=== PATIENT | female | born 1975 | race Caucasian/White ===

== ENCOUNTER 2016-10-02 09:19 | Emergency (ER) | payer MEDICAID, OTHER ==
[~2016-10-02] VITALS: Ht 154.9 cm; Wt 55.0 kg
[2016-10-02] MEDS ORDERED: KETOROLAC 60MG/2ML VIAL IM ONE (10:00)
[2016-10-02 10:19] VITALS: BP 136/78
== END 2016-10-02 11:07 | disposition home or self-care (01) ==
LOC: ER 09:40
DX: M79.642 Pain in left hand (principal); M54.5 Low back pain; E03.9 Hypothyroidism, unspecified; V49.9XXA Car occupant (driver) (passenger) injured in unspecified traffic accident, initial encounter; Y93.89 Activity, other specified; Y92.89 Other specified places as the place of occurrence of the external cause; Y99.8 Other external cause status
CPT/HCPCS: 73130; 81025; 96372; 99284; J1885

== ENCOUNTER 2019-05-03 07:13 | Emergency (ER) | payer SELFPAY ==
[~2019-05-03] VITALS: Ht 154.9 cm; Wt 56.0 kg
[2019-05-03] MEDS ORDERED: ONDANSETRON 4MG ODT PO ONE (08:45)
[2019-05-03] MEDS ORDERED: MECLIZINE 25MG TABLET PO ONE (08:45)
[2019-05-03 09:25] LABS: CHLORIDE 104 mEq/L (98-107)
[2019-05-03 09:28] LABS: BASOPHILS % 0.4 % (0.0-2.0); EOSINOPHILS % 0.6 % (0.0-5.0); HEMATOCRIT. 38.6 % (36.0-48.0); HEMOGLOBIN. 13.2 g/dL (12.0-16.0); LYMPHOCYTES % 18.4 % (20.0-50.0); MEAN CORPUSCULAR HEMOGLOBIN 28.7 pg (28.0-32.0); MEAN CORPUSCULAR VOLUME 83.7 fL (81.0-99.0); MEAN PLATELET VOLUME 7.1 fl (7.4-10.4); MONOCYTES % 3.1 % (2.0-8.0); NEUTROPHILS % 77.5 % (40.0-76.0); PLATELET 307 x1000/uL (130-400); RED BLOOD CELL COUNT 4.61 mill/uL (4.2-5.4); RED CELL DISTRIBUTION WIDTH 15.3 % (11.6-14.6)
[2019-05-03 09:38] LABS: HCG SCREEN NEGATIVE
[2019-05-03 10:32] VITALS: BP 123/74
== END 2019-05-03 10:35 | disposition home or self-care (01) ==
LOC: ER 07:13
DX: R42 Dizziness and giddiness (principal); E86.0 Dehydration; R03.0 Elevated blood-pressure reading, without diagnosis of hypertension; E11.9 Type 2 diabetes mellitus without complications
CPT/HCPCS: 36415; 70450; 71045; 80053; 81025; 83880; 84484; 84703; 85025; 93005; 99285; J8597; Q0162

== ENCOUNTER 2020-01-27 20:32 | Emergency (ER) | payer MEDICAID ==
[~2020-01-27] VITALS: Ht 162.6 cm; Wt 60.0 kg
[2020-01-27 23:56] VITALS: BP 136/81
== END 2020-01-27 23:58 | disposition home or self-care (01) ==
LOC: ER 20:32
DX: S02.832A Fracture of medial orbital wall, left side, initial encounter for closed fracture (principal); R03.0 Elevated blood-pressure reading, without diagnosis of hypertension; X99.0XXA Assault by sharp glass, initial encounter; Y93.89 Activity, other specified; Y92.488 Other paved roadways as the place of occurrence of the external cause
CPT/HCPCS: 70486; 81025; 93005; 99284

== ENCOUNTER 2020-01-29 06:46 | Emergency (ER) | payer MEDICAID ==
[~2020-01-29] VITALS: Ht 152.4 cm; Wt 57.0 kg
[2020-01-29 06:54] VITALS: BP 147/82
[2020-01-29] MEDS ORDERED: KETOROLAC 60MG/2ML VIAL IM ONE (07:15)
== END 2020-01-29 07:23 | disposition home or self-care (01) ==
LOC: ER 07:00
DX: S02.832A Fracture of medial orbital wall, left side, initial encounter for closed fracture (principal); G89.11 Acute pain due to trauma; M79.18 Myalgia, other site; K92.0 Hematemesis; Y09 Assault by unspecified means; R03.0 Elevated blood-pressure reading, without diagnosis of hypertension; Y93.89 Activity, other specified; Y92.89 Other specified places as the place of occurrence of the external cause; Y07.59 Other non-family member, perpetrator of maltreatment and neglect
CPT/HCPCS: 96372; 99283; J1885

== ENCOUNTER 2021-08-23 10:57 | Emergency (ER) | payer MEDICAID ==
[~2021-08-23] VITALS: Ht 160 cm; Wt 66.0 kg
[2021-08-23 11:09] VITALS: BP 115/78
[2021-08-23] MEDS ORDERED: KETOROLAC 60MG/2ML VIAL IM ONE (12:45)
[2021-08-23] MEDS ORDERED: DIPHENHYDRAMINE 25MG CAPSULE PO ONE (12:45)
[2021-08-23] MEDS ORDERED: IBUP-2029 MT ×3 (13:38→13:39)
== END 2021-08-23 13:50 | disposition home or self-care (01) ==
LOC: ER 10:57
DX: R51.9 Headache, unspecified (principal)
CPT/HCPCS: 70450; 96372; 99284; J1885; Q0163

== ENCOUNTER 2021-10-16 12:44 | Emergency (ER) | payer MEDICAID ==
[~2021-10-16] VITALS: Ht 157.5 cm; Wt 55.0 kg
[~2021-10-16 12:44] MED LIST: IBUP-2029 MT
[2021-10-16 13:06] VITALS: BP 120/77
[2021-10-19 08:10] LABS: QFT MITOGEN VALUE >10.00 IU/mL (.); QFT TB GOLD PLUS Positive (Negative)
== END 2021-10-16 15:52 | disposition home or self-care (01) ==
LOC: ER 12:44
DX: R76.11 Nonspecific reaction to tuberculin skin test without active tuberculosis (principal); I10 Essential (primary) hypertension
CPT/HCPCS: 71046; 86480; 99283

== ENCOUNTER 2023-07-16 23:46 | Emergency (ER) | payer MEDICAID ==
[~2023-07-16] VITALS: Ht 160 cm; Wt 83.0 kg
[2023-07-17 00:02] VITALS: O2SAT 96
[2023-07-17] MEDS ORDERED: D-ME473S50 PO (01:03)
[2023-07-17 01:11] VITALS: BP 116/71; PULSE 71; RESP 18; TEMP 98.2
== END 2023-07-17 01:11 | disposition home or self-care (01) ==
LOC: ER 23:46
DX: J02.9 Acute pharyngitis, unspecified (principal); Z53.21 Procedure and treatment not carried out due to patient leaving prior to being seen by health care provider
CPT/HCPCS: 99281